=== PATIENT | male | born 1945 | race Two or more races ===

== ENCOUNTER → 2017-11-07 | Outpatient (CLI) | payer MEDICARE | END | disposition home or self-care (01) | LOC: LAB 10:17 | DX: N28.1 Cyst of kidney, acquired (principal); N40.0 Benign prostatic hyperplasia without lower urinary tract symptoms | CPT/HCPCS: 76700 ==

== ENCOUNTER → 2018-06-23 | Day surgery (SDC) | payer MEDICARE ==
[~2018-06-23] MED LIST: ATOR10TA60 PO; FOSI10TA PO; GLIP5TAB22 PO; HYDROmorphone 2 MG/ML VIAL IV PRN; IV RINGERS,LACTATED 1000ML 1,000 ML IV SCH; LIDOCAINE 1% PF 2 ML VIAL. ID PRN; LIDOCAINE 1% PF 2 ML VIAL. ONE; METF500T9 PO; MORPHINE SULFATE 2 MG/ML VIAL. IV PRN; OMEG1CAP38 PO; ONDANSETRON PF 4 MG/2 ML VIAL. IV PRN; PROCHLORPERAZINE 10 MG/2 ML VIAL. IV PRN; PROPOFOL 20 ML IV ONE; SITA100T PO; TAMS0.4C2 PO; fentaNYL PF VIAL 100 MCG/2 ML VIAL IV PRN
[2018-06-23 10:48] VITALS: BP 126/57
--- NOTE | 2018-06-23 11:12 | CONS ---
DATE OF CONSULTATION: 06/23/2018 REFERRING PHYSICIAN: Dr. Steh Calero. REASON FOR CONSULTATION: Change in bowel habits. HISTORY OF PRESENT ILLNESS: This is a 72-year-old male, whose past medical history is significant for hyperlipidemia, diabetes, BPH as well as history of colonic polyps, hypertension, is seen for interval colon exam. He has had colon polyps in the remote past. He had recent change in bowel habits with urgency with bowel movements. With the continued issues, he requests additional evaluation. There has been no bleeding, no change in weight or appetite. PAST MEDICAL HISTORY: Hypertension, diabetes, BPH, history of colonic polyps, diverticulosis. ALLERGIES: None. MEDICATIONS: Include atorvastatin, lisinopril, glipizide, metformin, omega 3, Januvia and tamsulosin. FAMILY AND SOCIAL HISTORY: Nonsmoker, nondrinker. PAST SURGICAL HISTORY: Status post back surgery, hernia repairs. REVIEW OF SYSTEMS: As per records. PHYSICAL EXAMINATION: GENERAL: Reveals a well-nourished, well-developed male, alert, in no acute distress. VITAL SIGNS: Temperature 98, pulse 65, respirations 20. HEENT: Normocephalic and atraumatic head. Pupils and extraocular muscles are not tested. Sclerae are anicteric. NECK: Supple. LUNGS: Clear. CARDIOVASCULAR: Reveals an S1, S2 without S3, S4 or appreciable murmur. ABDOMEN: Soft abdomen, normal bowel sounds without appreciable hepatosplenomegaly. EXTREMITIES: Reveals no cyanosis, clubbing or edema. IMPRESSION: Change in bowel habits with history of diverticular disease, metformin use and may explain the potential diarrhea. Therefore, recommend colonoscopy to assess with history of polyps. Risks and benefits were discussed. The patient is willing to proceed at this time. BIPIN SPANGLER MD DR: JIGNESH/lacey JOB#: [id number] / [id number]
== END | disposition home or self-care (01) ==
LOC: SURG 08:26
PROVIDERS: ATTEND Internal Medicine Gastroenterology
DX: K57.30 Diverticulosis of large intestine without perforation or abscess without bleeding (principal); K64.0 First degree hemorrhoids; I10 Essential (primary) hypertension; E78.5 Hyperlipidemia, unspecified; E11.9 Type 2 diabetes mellitus without complications; N40.0 Benign prostatic hyperplasia without lower urinary tract symptoms; Z86.010 Personal history of colon polyps; Z79.84 Long term (current) use of oral hypoglycemic drugs; Z79.899 Other long term (current) drug therapy; Z98.890 Other specified postprocedural states; Z91.011 Allergy to milk products
CPT/HCPCS: 45378; J2704

== ENCOUNTER → 2019-04-16 | Outpatient (CLI) | payer MEDICARE ==
[2018-06-23 10:48] VITALS: BP 126/57
[~2019-04-16] MED LIST changes: +CHOL200074 PO; +DUTA0.5C PO; -FOSI10TA PO; +FOSI10TA2 PO; -HYDROmorphone 2 MG/ML VIAL IV PRN; -IV RINGERS,LACTATED 1000ML 1,000 ML IV SCH; -LIDOCAINE 1% PF 2 ML VIAL. ID PRN; -LIDOCAINE 1% PF 2 ML VIAL. ONE; +LISI-338 PO; +METF500T11 PO; -METF500T9 PO; -MORPHINE SULFATE 2 MG/ML VIAL. IV PRN; -ONDANSETRON PF 4 MG/2 ML VIAL. IV PRN; -PROCHLORPERAZINE 10 MG/2 ML VIAL. IV PRN; -PROPOFOL 20 ML IV ONE; -fentaNYL PF VIAL 100 MCG/2 ML VIAL IV PRN
--- NOTE | 2019-04-16 09:51 | RAD ---
DUPLEX SONOGRAPHY OF THE PERIPHERAL ARTERIAL SYSTEM OF THE LEFT LOWER EXTREMITY Clinical indications: Nonhealing ulcer of left lower leg Findings: Duplex sonography of the peripheral arterial system of the left lower extremity including hilliard scale and color flow and spectral waveform analysis was performed. Biphasic waveforms are seen. There is an increase in end-diastolic flow flow velocity within the left dorsalis pedis artery with a decrease in peak systolic flow velocity which may indicate a significant disease within the distal anterior tibial artery or proximal left dorsalis pedis artery. No occlusive disease is seen. The measurements were performed using the NASCET criteria. Peak systolic flow velocities are as follows: Left leg: common femoral artery- 109 cm/sec, profunda femoral artery -79 cm/sec, proximal superficial femoral artery- 101cm/sec, mid superficial femoral artery- 106 cm/sec, distal superficial femoral artery- 99 cm/sec, popliteal artery -60 cm/sec, proximal posterior tibial artery -63 cm/sec, distal posterior tibial artery- 91 cm/sec, peroneal artery -84 cm/sec, anterior tibial artery -89 cm/sec, dorsalis pedis artery- 14 cm/sec. Impression: There may be a significant stenosis within the distal left anterior tibial artery or proximal left dorsalis pedis artery. Electronically signed by: Bharat Barclay MD (04/16/2019 9:48 AM) [id number]
== END | disposition home or self-care (01) ==
LOC: US 07:58
PROVIDERS: ATTEND Family Medicine
DX: L97.829 Non-pressure chronic ulcer of other part of left lower leg with unspecified severity (principal)
CPT/HCPCS: 93926

== ENCOUNTER 2019-05-07 08:03 | Outpatient (CLI) | payer MEDICARE ==
[~2019-05-07] VITALS: Ht 167.6 cm; Wt 73.5 kg
[2019-05-07] VITALS (11 sets, daily range): BP systolic 97–124; BP diastolic 48–73
[~2019-05-07 08:03] MED LIST changes: -CHOL200074 PO; -DUTA0.5C PO; -LISI-338 PO
[2019-05-07] MEDS ORDERED: LISI-338 PO (08:21)
[2019-05-07] MEDS ORDERED: CHOL200074 PO (08:21)
[2019-05-07] MEDS ORDERED: DUTA0.5C PO (08:21)
[2019-05-07 08:38] LABS: BASO % 1 % (0-3); EOS # 0.1 x10^3/uL (0.0-0.7); EOS % 3 % (0-3); HEMATOCRIT 43.9 % (39.0-53.0); HEMOGLOBIN 14.7 g/dL (13.0-17.5); LYMPH # 1.1 x10^3/uL (1.0-4.8); LYMPH % 29 % (24-48); MEAN CORPUSCULAR HEMOGLOBIN 30 pg (25-35); MEAN CORPUSCULAR HGB CONC 34 g/dL (31-37); MEAN CORPUSCULAR VOLUME 90 fL (79-100); MONO # 0.4 x10^3/uL (0.0-1.1); MONO % 10 % (0-9); NEUT # 2.2 x10^3/uL (1.8-7.7); NEUT % 58 % (31-73); PLATELET COUNT 107 x10^3/uL (140-400); RED BLOOD COUNT 4.89 x10^6/uL (4.30-5.70); RED CELL DISTRIBUTION WIDTH 14.6 % (11.5-14.5); WHITE BLOOD COUNT 3.7 x10^3/uL (4.0-11.0)
[2019-05-07 08:41] LABS: CALCIUM 8.8 mg/dL (8.5-10.1); CREATININE 0.9 mg/dL (0.7-1.3); GFR 82.3; POTASSIUM 3.9 mmol/L (3.5-5.1)
[2019-05-07 08:48] LABS: PROTHROMBIN TIME PATIENT 13.5 SEC (11.7-14.0)
[2019-05-07] MEDS ORDERED: IODIXANOL 320 MG/ML 100 ML VIAL. ONE (09:37)
[2019-05-07] MEDS ORDERED: LIDOCAINE WITH 8.4% SOD BICARB 3 ML DISP.SYRIN. ONE (09:37)
[2019-05-07] MEDS ORDERED: HEPARIN for IV BOLUS 10,000 UNIT/10 ML VIAL. ONE (09:51)
[2019-05-07] MEDS ORDERED: fentaNYL PF VIAL 100 MCG/2 ML VIAL ONE (09:51)
[2019-05-07] MEDS ORDERED: MIDAZOLAM HCL/PF 2 MG/2 ML VIAL. ONE (09:51)
[2019-05-07] MEDS ORDERED: HEPARIN for IV BOLUS 10,000 UNIT/10 ML VIAL. IV ONE (10:45)
[2019-05-07] MEDS ORDERED: MIDAZOLAM HCL/PF 2 MG/2 ML VIAL. IV ONE (10:45)
[2019-05-07] MEDS ORDERED: IODIXANOL 320 MG/ML 100 ML VIAL. IART ONE (10:45)
[2019-05-07] MEDS ORDERED: LIDOCAINE WITH 8.4% SOD BICARB 3 ML DISP.SYRIN. IJ ONE (10:45)
[2019-05-07] MEDS ORDERED: fentaNYL PF VIAL 100 MCG/2 ML VIAL IV ONE (10:45)
--- NOTE | 2019-05-07 11:26 | PDOC ---
BRIEF OPERATIVE NOTE Pre-Op Diagnosis PAD Post-Op Diagnosis same Procedure Performed LLE arteriogram, angioplasty of left COMPLIANCE ADMINISTRATOR Surgeon Fritz Anesthesia Type: Conscious Sedation Findings Occlused AT and proximal DP, unable to recanalize. Patent PT with tandem significant stenoses improved after angioplasty. Intact pedal arch reconstitutes distal AT. Intact peroneal with moderate stenosis. Complications No immediate SALLIE TREVINO MD May 07, 2019 11:26
--- NOTE | 2019-05-07 11:26 | PDOC ---
MODERATE SEDATION ASSESSMENT RISKS/ALTERNATIVES Risks/Alternatives Risks and alternatives of this type of sedation and procedure discussed with: RISK/ALTERNATIVES: Patient H & P ON CHART H & P H & P on chart and reviewed for co-morbid conditions and appropriate labs. H&P ON CHART: Yes STATUS PREG STATUS ASSESSED: Yes MEDS/ALLERGIES REVIEWED Meds/Allergies Reviewed Medications and Allergies including time and route of recently administered narcotics and sedatives. MEDS/ALLERGIES REVIEWED: Yes ASA RATING ASA RATING: II AIRWAY ASSESSMENT Airway Assessment Airway patency, oral function limitations, presence of caps, crowns, dentures, partials, and ability to extend neck assessed. AIRWAY ASSESSMENT: Yes MALLAMPATI SCORE MALLAMPATI SCORE: II PRE-SEDATION ASSESSMENT PRE-SEDATION ASSESSMENT: Yes SALLIE TREVINO MD May 07, 2019 11:26
--- NOTE | 2019-05-07 11:27 | PDOC1 ---
History and Physical Date of Procedure Date of Admission History of Present Illness Reason for Visit Adult with abnormal doppler and pain LLE Past Medical History Past Medical History see nursing pre-op assessment Current Medications Current Medications Current Medications Iodixanol (Visipaque 320) 100 ml STK-MED ONCE .ROUTE ; Start 05/07/19 at 09:37; Stop 05/07/19 at 09:37; Status DC Lidocaine HCl (Buffered Lidocaine 1%) 3 ml STK-MED ONCE .ROUTE ; Start 05/07/19 at 09:37; Stop 05/07/19 at 09:37; Status DC Heparin Sodium/ Sodium Chloride 1,000 ml @ As Directed STK-MED ONCE .ROUTE ; Start 05/07/19 at 09:37; Stop 05/07/19 at 09:37; Status DC Midazolam HCl (Versed) 2 mg STK-MED ONCE .ROUTE ; Start 05/07/19 at 09:51; Stop 05/07/19 at 09:51; Status DC Fentanyl Citrate (Fentanyl 2ml Vial) 100 mcg STK-MED ONCE .ROUTE ; Start 05/07/19 at 09:51; Stop 05/07/19 at 09:51; Status DC Heparin Sodium (Porcine) (Heparin Sodium) 10,000 unit STK-MED ONCE .ROUTE ; Start 05/07/19 at 09:51; Stop 05/07/19 at 09:51; Status DC Heparin Sodium/ Sodium Chloride (HEPARIN for ARTERIAL LINE FLUSH) 1,000 unit 1X ONCE IART ; Start 05/07/19 at 10:45; Stop 05/07/19 at 10:46; Status DC Heparin Sodium/ Sodium Chloride (HEPARIN for ARTERIAL LINE FLUSH) 1,000 unit 1X ONCE IART ; Start 05/07/19 at 10:45; Stop 05/07/19 at 10:46; Status DC Lidocaine HCl (Buffered Lidocaine 1%) 4 ml 1X ONCE IJ ; Start 05/07/19 at 10:45; Stop 05/07/19 at 10:46; Status DC Midazolam HCl (Versed) 2 mg 1X ONCE IV ; Start 05/07/19 at 10:45; Stop 05/07/19 at 10:46; Status DC Fentanyl Citrate (Fentanyl 2ml Vial) 100 mcg 1X ONCE IV ; Start 05/07/19 at 10:45; Stop 05/07/19 at 10:46; Status DC Iodixanol (Visipaque 320) 100 ml 1X ONCE IART ; Start 05/07/19 at 10:45; Stop 05/07/19 at 10:46; Status DC Heparin Sodium (Porcine) (Heparin Sodium) 5,000 unit 1X ONCE IV ; Start at 10:45; Stop 05/07/19 at 10:46; Status DC Active Scripts Active Reported Vitamin D-3 (Cholecalciferol (Vitamin D3)) 2,000 Unit Capsule 1 Cap PO DAILY 30 Days Avodart (Dutasteride) 0.5 Mg Capsule 1 Cap PO DAILY Lisinopril 5 Mg Tablet 1 Tab PO DAILY Januvia (Sitagliptin Phosphate) 100 Mg Tablet 100 Mg PO DAILY Glipizide Er (Glipizide) 5 Mg Tab.er.24 1 Tab PO DAILY Metformin Hcl Er (Metformin Hcl) 500 Mg Tab.er.24h 500 Mg PO DAILYWBKFT Tamsulosin Hcl 0.4 Mg Cap.er.24h 1 Cap PO DAILY Allergies Allergies: Coded Allergies: milk (Verified Allergy, Intermediate, 06/23/18) Physical Exam Vital Signs Vital Signs Date Time Temp Pulse Resp B/P (MAP) Pulse Ox O2 Delivery O2 Flow Rate FiO2 05/07/19 08:56 Room Air 05/07/19 08:55 97.8 60 18 124/66 (85) 98 97.8 Other See nursing pre-op assessment Assessment Assessment PAD Plan Plan LLE arteriogram with intervention SALLIE TREVINO MD May 07, 2019 11:27
--- NOTE | 2019-05-07 16:24 | RAD ---
Procedure: Aortogram, left lower extremity diagnostic arteriogram, and angioplasty of the left posterior tibial artery. Clinical Indication: 73-year-old with ischemia of the left foot, left foot pain, poorly healing wound. Sedation: Conscious sedation was administered with a total intraprocedural [id number] time of 90 minutes. The patient was monitored by a qualified independent observer throughout the time of sedation. Please refer to the medical record for exact doses of medications utilized to achieve moderate sedation. Antibiotics: Antibiotic was administered intravenously within 1 hour of the procedure start time. Exposure: Kerma-Area Product: 144 Gycm2 Sterility: All elements of maximal sterile barrier technique including the use of a cap, mask, sterile gown, sterile gloves, large sterile sheet, appropriate hand hygiene, and 2% chlorhexidine for cutaneous antisepsis (or acceptable alternative antiseptic per current guidelines) were followed for this procedure. Consent: The procedure was explained in its entirety to the patient or the patients designated territory account representative by a member of the treatment team, including a discussion of the risks, benefits and commonly accepted alternatives to the procedure, as well as the expected consequences of no therapy whatsoever. Discussion of the risks included, but was not limited to, those that are most frequent and those that are rare but possibly severe or life-threatening, as well as the possibility of unforeseen complications. Technique and Findings: Following informed consent, the patient was prepped and draped in usual sterile fashion. Ultrasound interrogation of the right groin revealed patency of the right common femoral artery. A hardcopy ultrasound image was recorded as a 21-gauge micropuncture needle was used to gain access to this artery. The needle was exchanged over wire for 5 [place]i sheath. A flush catheter was advanced into the abdominal aorta and contrast aortography was performed. The aorta is widely patent. The catheter was withdrawn to just above the aortic bifurcation and contrast angiography of the pelvis was performed in multiple obliquities. The bilateral common, internal, and external iliac arteries are widely patent. Bilateral common femoral arteries are patent as well. The angled catheter was then used to cross the aortic bifurcation and was advanced to the contralateral left common femoral artery, and contrast angiography of the left lower extremity was performed. The left superficial femoral artery, deep femoral artery, and popliteal arteries are all widely patent with minimal atherosclerosis. The anterior tibial artery is patent proximally but abruptly occludes. The posterior tibial and peroneal arteries are patent with in-line flow to a patent posterior tibial artery of the foot. The pedal arch is patent, with vertebrae filling of the distal dorsalis pedis artery and digital arteries. No demonstrable filling of the proximal dorsalis pedis artery or distal anterior tibial artery. There are multiple tandem stenoses involving the posterior tibial artery at the level of the mid and distal leg, and there is a single moderate stenosis of the peroneal artery centrally. The patient was then given 5000 units of heparin intravenously. The short sheath was exchanged for a long 6 [place]i sheath which was advanced to the left proximal superficial femoral artery. An angled catheter was then used to engage the left anterior tibial artery, and was exchanged for a quick cross catheter. This was used in conjunction with microwire to probe area of occlusion. The catheter was successfully advanced the level of the mid calf, but could not be advanced beyond this level. Consequently, the catheter wire were withdrawn, and an angled catheter was used to engage the tibioperoneal trunk. Angiography demonstrate patency of the tibial peroneal trunk. The catheter was then used to engage the posterior tibial artery, and selective angiography was performed. There is long segment stenosis of the proximal posterior tibial artery, with a tandem distal short segment stenosis just above the ankle. There is evidence perfusion to the posterior tibial artery from the peroneal artery, confirming hemodynamic significance of the proximal stenosis. A 2.5 mm x 200 mm angioplasty balloon was then advanced across both stenoses and used to angioplasty the posterior tibial artery above the ankle for 3 minutes. Angiography demonstrated markedly improved angiographic appearance of the proximal stenosis, with persistent short segment distal stenosis. The angioplasty was then repeated for an additional 3 minutes. Completion angiogram demonstrated christianity of flow and brisk manner, with decreased collateral flow from the peroneal artery. A completion angiographic flow was performed demonstrating improved flow through the pedal arch with late reconstitution of a very short segment of the anterior tibial artery just above the ankle from small branches of the peroneal artery, and late recanalization of the short segment of very small proximal dorsalis pedis artery, also from small collaterals in the foot. The catheters and wires were then removed and the sheath was retracted to the right external iliac artery and selective angiography was performed to assess for suitability of a closure device. A star close device was then successfully utilized to obtain hemostasis. Complications: No immediate Impression: 1. Minimal atherosclerosis involving the aortoiliac and femoral arteries of the left leg. 2. Long segment occlusion of the anterior tibial artery, which could not be recanalized from an antegrade approach. 3. Occluded proximal dorsalis pedis artery, with reconstitution of the distal dorsalis pedis and digital arteries from flow via a patent pedal arch. 4. Two-vessel runoff with the peroneal and posterior tibial arteries. There is moderate stenosis of the peroneal artery, and there are tandem severe stenoses involving the posterior tibial artery. The posterior tibial artery is markedly improved following angioplasty, with improved flow to the pedal arch. 5. Following posterior tibial artery angioplasty, there is delayed visualization of a short segment of anterior dorsalis pedis artery reconstituted by small collaterals of the foot. This is occluded both proximally and distally however.
[2019-05-08] MEDS ORDERED: LIDOCAINE WITH 8.4% SOD BICARB 3 ML DISP.SYRIN. INJ ONE (09:15)
== END 2019-05-07 15:01 | disposition home or self-care (01) ==
LOC: INTRAD 08:03
PROVIDERS: ATTEND Family Medicine
DX: I70.222 Atherosclerosis of native arteries of extremities with rest pain, left leg (principal); Z79.01 Long term (current) use of anticoagulants; Z91.011 Allergy to milk products
CPT/HCPCS: 36415; 37228; 75625; 75716; 76937; 80048; 85025; 85610; 85730; 99152; 99153; A4215; C1713; C1725; C1760; C1769; C1892; C1894; J1644; J2250; J3010; Q9967; 75710; G0269

== ENCOUNTER → 2019-05-10 | Outpatient (CLI) | payer MEDICARE ==
[2019-05-07 14:00] VITALS: BP 97/48
[~2019-05-10] MED LIST changes: +CHOL200074 PO; +DUTA0.5C PO; +LISI-338 PO
--- NOTE | 2019-05-10 12:16 | RAD ---
DUPLEX LOWER EX ARTERIAL RIGHT History: History of recent angiogram. Right groin pain and bruising. Comparison: None Technique: Sonographic examination of the right inguinal region and vasculature with color Doppler Findings: No evidence of thrombus within the right common femoral or superficial femoral vein including the greater saphenous vein. No evidence of right common femoral artery pseudoaneurysm. No fluid collection within the right inguinal soft tissues. Impression: 1. No ultrasound evidence of right inguinal region DVT or pseudoaneurysm. Electronically signed by: Jalen Perry DO (05/10/2019 12:13 PM) [facility]
== END | disposition home or self-care (01) ==
LOC: RAD 10:38
PROVIDERS: ATTEND Radiology Diagnostic Radiology
DX: R10.31 Right lower quadrant pain (principal)
CPT/HCPCS: 93926

== ENCOUNTER → 2021-08-04 | Outpatient (CLI) | payer MEDICARE ==
[2019-12-06 11:00] VITALS: BP 147/57
[~2021-08-04] MED LIST changes: -FOSI10TA2 PO; +FOSI10TA42 PO; +IOHEXOL 240 MG/ML 50ML VIAL. PO ONE; +IOHEXOL 300 MG/ML 100ML VIAL. IV ONE; -LISI-338 PO; +LISI5TAB15 PO; +METF-658 PO; -METF500T11 PO
--- NOTE | 2021-08-04 13:13 | KCIC ---
EXAM: Abdomen and pelvis CT with intravenous contrast. HISTORY: Diverticulitis. TECHNIQUE: Computed tomographic images of the abdomen and pelvis were obtained following the administ ration of intravenous contrast. Multiplanar reformatting was performed. *One or more of the following individualized dose reduction techniques were utilized for this examina tion: 1. Automated exposure control. 2. Adjustment of the mA and/or kV according to patient size. 3. Use of iterative reconstruction technique. COMPARISON: None. FINDINGS: Evaluation of the lower thorax demonstrates bilateral posterior dependent and basilar atele ctasis. There is cardiomegaly. There is calcified atherosclerotic plaque involving the coronary arter ies. No hepatic lesion is seen. The gallbladder, pancreas, spleen and adrenal glands are unremarkable . There are multiple simple renal cysts, the largest of which measures 2.7 cm within the upper pole of the right kidney. There is a suspected punctate nonobstructing stone within the lower pole the left k idney. There is no hydronephrosis. The pancreas is prominent in caliber, measuring 10 mm. There is no secondary findings to suggest appe ndicitis. No abnormally thickened or dilated loop of bowel is seen. There are a few colonic diverticu la. The aorta is normal in caliber. There are are small fat-containing inguinal hernias. There is an 11 mm calcification within the posterior bladder. There are degenerative changes involving the spine. There is no acute or suspicious osseous finding. IMPRESSION: 1. Few colonic diverticula. There is no evidence of diverticulitis. 2. Multiple simple appearing renal cysts and suspected punctate nontracking left renal stone. 3. 11 mm calcification within the bladder, likely due to a bladder stone. 4. Dilated appendix measuring 10 mm. There is no appendiceal wall thickening or surrounding stranding to suggest appendicitis. No convincing appendiceal mass is seen. Electronically signed by: Alexandrea Serrato MD (08/04/2021 1:11 PM) [id number]
== END ==
LOC: KCIC CT 08:49
PROVIDERS: ATTEND Internal Medicine Gastroenterology
DX: K57.30 Diverticulosis of large intestine without perforation or abscess without bleeding (principal); N28.1 Cyst of kidney, acquired; N32.89 Other specified disorders of bladder; I51.7 Cardiomegaly; I25.10 Atherosclerotic heart disease of native coronary artery without angina pectoris; K40.90 Unilateral inguinal hernia, without obstruction or gangrene, not specified as recurrent; M47.819 Spondylosis without myelopathy or radiculopathy, site unspecified
CPT/HCPCS: 74177; 82565; Q9966; Q9967

== ENCOUNTER → 2021-09-08 | Outpatient (CLI) | payer MEDICARE ==
[2019-12-06 11:00] VITALS: BP 147/57
[~2021-09-08] MED LIST changes: -IOHEXOL 240 MG/ML 50ML VIAL. PO ONE; -IOHEXOL 300 MG/ML 100ML VIAL. IV ONE
[2021-09-08 11:12] LABS: BASO # 0.1 x10^3/uL (0.0-0.2); BASO % 1 % (0-3); EOS # 0.1 x10^3/uL (0.0-0.7); EOS % 3 % (0-3); HEMATOCRIT 44.3 % (39.0-53.0); HEMOGLOBIN 14.7 g/dL (13.0-17.5); LYMPH # 0.9 x10^3/uL (1.0-4.8); LYMPH % 21 % (24-48); MEAN CORPUSCULAR HEMOGLOBIN 29 pg (25-35); MEAN CORPUSCULAR HGB CONC 33 g/dL (31-37); MEAN CORPUSCULAR VOLUME 89 fL (79-100); MONO # 0.3 x10^3/uL (0.0-1.1); MONO % 8 % (0-9); NEUT % 68 % (31-73); PLATELET COUNT 122 x10^3/uL (140-400); RED BLOOD COUNT 4.99 x10^6/uL (4.30-5.70); RED CELL DISTRIBUTION WIDTH 14.3 % (11.5-14.5); WHITE BLOOD COUNT 4.4 x10^3/uL (4.0-11.0)
[2021-09-09 15:15] LABS: KAPPA FREE 28.8 mg/L (3.3-19.4); KAPPA LAMBDA RATIO 1.78 (0.26-1.65); LAMBDA FREE 16.2 mg/L (5.7-26.3)
[2021-09-09 16:12] LABS: ALBUM 4.1 g/dL (2.9-4.4); ALPHA 1 0.2 g/dL (0.0-0.4); ALPHA 2 0.9 g/dL (0.4-1.0); GAMMA 1.3 g/dL (0.4-1.8); IMMUNOGLOBULIN A 220 mg/dL (61-437); IMMUNOGLOBULIN G 1107 mg/dL (603-1613); IMMUNOGLOBULIN M 113 mg/dL (15-143); PROTEIN TOTAL 7.4 g/dL (6.0-8.5); SPEP AG RATIO 1.2 (0.7-1.7)
== END ==
LOC: ONCLAB 10:17
PROVIDERS: ATTEND Internal Medicine Hematology & Oncology
DX: D69.6 Thrombocytopenia, unspecified (principal)
CPT/HCPCS: 82525; 82607; 82746; 82784; 83520; 84165; 85025; 86334; 86703; 86803; 87340